=== PATIENT | female | born 1965 | race Hispanic/Latino ===

== ENCOUNTER 2019-05-27 18:22 | Inpatient (IN) | payer MEDICAID, OTHER ==
[~2019-05-27] VITALS: Ht 154.9 cm; Wt 69.5 kg
[2019-05-27 18:42] LABS: APPEARANCE,URINE Clear (CLEAR); BILIRUBIN,URINE Negative (NEGATIVE); COLOR,URINE Yellow (YELLOW); GLUCOSE, URINE (UA) 250 mg/dL (NEGATIVE); KETONES,URINE Negative (NEGATIVE); LEUKOCYTE ESTERASE ,URINE Negative (NEGATIVE); NITRATE,URINE Negative (NEGATIVE); OCCULT BLOOD,URINE Negative (NEGATIVE); PROTEIN,URINE Negative (NEGATIVE); UROBILINOGEN,URINE 0.2 mg/dL (0.2-1.0)
[2019-05-27 18:49] LABS: BASOPHILS % (AUTO) 0.9 % (0.0-5.0); EOSINOPHILS % (AUTO) 1.4 % (0.0-8.0); HEMATOCRIT 42.1 % (36-48); LYMPHOCYTES % (AUTO) 31.1 % (21.0-51.0); MEAN CORPUSCULAR HEMOGLOBIN 28.9 pg (27.0-33.0); MEAN CORPUSCULAR HGB CONC 34.2 g/dL (32.0-36.0); MEAN CORPUSCULAR VOLUME 84.4 fL (79-99); MONOCYTES % (AUTO) 4.2 % (3.0-13.0); NEUTROPHILS % (AUTO) 62.4 % (40.0-77.0); NUCLEATED RED BLOOD CELLS 0.1 % (0.0-0.19); PLATELET COUNT (AUTO) 306 K/uL (130-400); RED BLOOD CELL COUNT(AUTO) 4.99 MIL/uL (4.00-5.50); RED CELL DISTRIBUTION WIDTH 12.7 % (11.0-15.5)
[2019-05-27 18:56] LABS: BACTERIA,URINE Few /HPF (None Seen); MUCUS,URINE None Seen LPF (None Seen); SQUAMOUS EPITHELIAL CELL,UR 0-2 /HPF (0-2)
[2019-05-27 19:05] LABS: CREATININE 0.8 mg/dL (0.5-1.5); POTASSIUM 3.2 mmol/L (3.5-5.1)
[2019-05-27 19:11] LABS: ALBUMIN 3.8 g/dL (3.5-5.0); BILIRUBIN,TOTAL 0.5 mg/dL (0.2-1.0); TOTAL PROTEIN, SERUM 8.1 g/dL (6.0-8.3)
[2019-05-27] MEDS ORDERED: IOHEXOL-350 75 ML VIAL IV ONE (19:14)
[2019-05-27] MEDS ORDERED: ASPIRIN 325 MG TABLET ONE (20:17)
[2019-05-27] MEDS ORDERED: POTASSIUM BICARB/CIT AC 25 MEQ TABLET.EFF ONE (20:17)
[2019-05-27] MEDS ORDERED: HYDRALAZINE HCL 20 MG/ML VIAL IV PRN (22:15)
[2019-05-27] MEDS ORDERED: ACETAMINOPHEN 325 MG TAB PO PRN (22:15)
[2019-05-27] MEDS: SODIUM CHLORIDE 0.9% 1000ML 1,000 ML IV SCH (22:15)
[2019-05-27] MEDS ORDERED: ONDANSETRON HCL 4 MG/2 ML VIAL IV PRN (22:15)
[2019-05-27 22:41] LABS: HEMOGLOBIN A1C 11.5 % (4.0-6.0)
[2019-05-27 22:50] VITALS: BP 130/77
[2019-05-27 22:56] LABS: CHOLESTEROL 224 mg/dL (<200); LDL DIRECT 101 mg/dL (0-99); TRIGLYCERIDES 356 mg/dL (30-200)
[2019-05-27] MEDS ORDERED: SODIUM CHLORIDE 0.9% 1000ML 1,000 ML IV ONE (23:27)
[2019-05-27 23:30] LABS: HDL CHOLESTEROL 41 mg/dL (35-85)
[2019-05-27 23:31] VITALS: BP 132/79
--- NOTE | 2019-05-28 00:12 | NUR ---
Assessment Pt AOX3, stable, good, currently denies any chest pain and denies symptoms of f left sided unilateral paresthesia, left shoulder, and neck pain. No signs of left sided weakness at the moment or facial drop, able to move all extremities. BS in 280, will start hyperglycemia protocol as per MD orders in am. Call light with in reach, pt verbalizes understanding.
[2019-05-28 03:50] LABS: BASOPHILS % (AUTO) 0.5 % (0.0-5.0); EOSINOPHILS % (AUTO) 1.9 % (0.0-8.0); HEMATOCRIT 37.5 % (36-48); LYMPHOCYTES % (AUTO) 38.5 % (21.0-51.0); MEAN CORPUSCULAR HEMOGLOBIN 29.2 pg (27.0-33.0); MEAN CORPUSCULAR HGB CONC 34.2 g/dL (32.0-36.0); MEAN CORPUSCULAR VOLUME 85.5 fL (79-99); MONOCYTES % (AUTO) 5.2 % (3.0-13.0); NEUTROPHILS % (AUTO) 53.9 % (40.0-77.0); PLATELET COUNT (AUTO) 274 K/uL (130-400); RED BLOOD CELL COUNT(AUTO) 4.39 MIL/uL (4.00-5.50); RED CELL DISTRIBUTION WIDTH 12.7 % (11.0-15.5); WHITE BLOOD COUNT (AUTO) 10.9 K/uL (4.8-10.8)
[2019-05-28 03:58] VITALS: BP 129/70
[2019-05-28] MEDS: INSULIN HUMULIN R 100 UNIT/ML 3ML SQ SCH ×4 (06:32→22:01)
[2019-05-28 07:00] VITALS: BP 135/76
--- NOTE | 2019-05-28 07:25 | NUR ---
DR. Carlotta PATEL IN ROOM SPEAKING WITH PT. RE:PLAN OF CARE. QUESTIONS ANSWERED BY .
[2019-05-28] MEDS: SODIUM CHLORIDE 0.9% 1000ML 1,000 ML IV SCH (08:15)
[2019-05-28] MEDS: ATORVASTATIN CALCIUM 40 MG TABLET PO SCH (08:18)
[2019-05-28] MEDS: LISINOPRIL 10 MG TABLET PO SCH (08:18)
[2019-05-28] MEDS: ASPIRIN 81MG TAB.CHEW PO SCH (08:18)
[2019-05-28] MEDS: CLOPIDOGREL BISULFATE 75 MG TAB PO SCH (08:18)
[2019-05-28] MEDS: ENOXAPARIN SODIUM 30 MG/0.3 ML SQ SCH (08:19)
[2019-05-28] MEDS: INSULIN HUMULIN 70/30 100 UNIT/ML 3ML SQ SCH (08:27)
[2019-05-28] MEDS ORDERED: ASPIRIN 81MG TAB.CHEW PO SCH (09:00)
[2019-05-28] MEDS ORDERED: ATORVASTATIN CALCIUM 20 MG TABLET PO SCH (09:00)
[2019-05-28 11:00] VITALS: BP 136/72
[2019-05-28 15:00] VITALS: BP 131/67
[2019-05-28] MEDS ORDERED: INSULIN HUMULIN 70/30 100 UNIT/ML 3ML SQ SCH (19:00)
--- NOTE | 2019-05-28 19:09 | NUR ---
cm note met with patient and states resides at home with adult son Leonardo. pt states is independent with ambulation and adls. no dme. does not see md. provided pt with list of low income clinics in the area. and rx assistance coupons, pt states she plans to followup for [facility] for insurance. . states dc plan is back to home at time of dc. Addendum: 05/28/19 at 2 by VADIM HEARD CM Amended: Links added.
[2019-05-28 20:24] VITALS: BP 148/77
[2019-05-28 23:56] VITALS: BP 137/72
[2019-05-29 04:00] LABS: BASOPHILS % (AUTO) 0.5 % (0.0-5.0); EOSINOPHILS % (AUTO) 1.8 % (0.0-8.0); HEMATOCRIT 38.7 % (36-48); LYMPHOCYTES % (AUTO) 36.2 % (21.0-51.0); MEAN CORPUSCULAR HEMOGLOBIN 28.8 pg (27.0-33.0); MEAN CORPUSCULAR HGB CONC 33.8 g/dL (32.0-36.0); MONOCYTES % (AUTO) 5.2 % (3.0-13.0); NEUTROPHILS % (AUTO) 56.3 % (40.0-77.0); PLATELET COUNT (AUTO) 274 K/uL (130-400); RED BLOOD CELL COUNT(AUTO) 4.55 MIL/uL (4.00-5.50); RED CELL DISTRIBUTION WIDTH 12.5 % (11.0-15.5); WHITE BLOOD COUNT (AUTO) 9.8 K/uL (4.8-10.8)
[2019-05-29 04:14] LABS: CREATININE 0.9 mg/dL (0.5-1.5); POTASSIUM 3.3 mmol/L (3.5-5.1)
[2019-05-29 04:16] VITALS: BP 128/78
[2019-05-29] MEDS ORDERED: POTASSIUM CHLORIDE 20MEQ/100ML 100 ML IV PRN (06:15)
[2019-05-29] MEDS ORDERED: LIDOCAINE HCL-MPF 1% 2ML VIAL IV PRN (06:15)
[2019-05-29] MEDS ORDERED: POTASSIUM CHLORIDE 10% ELIXIR 20 MEQ/15 ML UDCUP PO PRN (06:15)
[2019-05-29] MEDS: POTASSIUM CHLORIDE 20 MEQ ERTAB PO PRN ×2 (06:26→08:12)
[2019-05-29] MEDS: INSULIN HUMULIN R 100 UNIT/ML 3ML SQ SCH ×4 (06:27→21:19)
[2019-05-29] MEDS: INSULIN HUMULIN 70/30 100 UNIT/ML 3ML SQ SCH (06:28)
[2019-05-29] MEDS ORDERED: INSULIN HUMULIN 70/30 100 UNIT/ML 3ML SQ SCH ×2 (07:00→19:00)
[2019-05-29 07:42] VITALS: BP 140/76
[2019-05-29] MEDS: LISINOPRIL 10 MG TABLET PO SCH (08:12)
[2019-05-29] MEDS: CLOPIDOGREL BISULFATE 75 MG TAB PO SCH (08:12)
[2019-05-29] MEDS: ASPIRIN 81MG TAB.CHEW PO SCH (08:12)
[2019-05-29] MEDS: ATORVASTATIN CALCIUM 40 MG TABLET PO SCH (08:12)
[2019-05-29] MEDS: ACETAMINOPHEN 325 MG TAB PO PRN (08:13)
[2019-05-29] MEDS: ENOXAPARIN SODIUM 30 MG/0.3 ML SQ SCH (08:18)
[2019-05-29 11:26] VITALS: BP 123/68
[2019-05-29] MEDS: FLUTICASONE PROPIONATE 50MCG/SPRAY 16 GM BOTTLE EN SCH ×3 (14:00→20:20)
[2019-05-29] MEDS: LORATADINE 10 MG TABLET PO SCH (14:42)
[2019-05-29 16:23] VITALS: BP 136/78
[2019-05-29 19:52] VITALS: BP 143/68
[2019-05-29] MEDS ORDERED: TRAMADOL HCL 50 MG TABLET PO PRN ×2 (20:00)
[2019-05-29 23:54] VITALS: BP 146/77
[2019-05-30 03:39] LABS: BASOPHILS % (AUTO) 0.4 % (0.0-5.0); EOSINOPHILS % (AUTO) 2.3 % (0.0-8.0); HEMATOCRIT 38.7 % (36-48); LYMPHOCYTES % (AUTO) 33.3 % (21.0-51.0); MEAN CORPUSCULAR HEMOGLOBIN 29.7 pg (27.0-33.0); MEAN CORPUSCULAR HGB CONC 34.4 g/dL (32.0-36.0); MEAN CORPUSCULAR VOLUME 86.2 fL (79-99); MONOCYTES % (AUTO) 5.5 % (3.0-13.0); NEUTROPHILS % (AUTO) 58.5 % (40.0-77.0); NUCLEATED RED BLOOD CELLS 0.1 % (0.0-0.19); PLATELET COUNT (AUTO) 278 K/uL (130-400); RED BLOOD CELL COUNT(AUTO) 4.49 MIL/uL (4.00-5.50); RED CELL DISTRIBUTION WIDTH 12.8 % (11.0-15.5); WHITE BLOOD COUNT (AUTO) 9.8 K/uL (4.8-10.8)
[2019-05-30 03:42] LABS: CREATININE 0.8 mg/dL (0.5-1.5); POTASSIUM 3.8 mmol/L (3.5-5.1)
[2019-05-30 04:25] VITALS: BP 143/79
[2019-05-30] MEDS: INSULIN HUMULIN R 100 UNIT/ML 3ML SQ SCH ×4 (06:23→21:44)
[2019-05-30] MEDS ORDERED: INSULIN HUMULIN 70/30 100 UNIT/ML 3ML SQ SCH (07:00)
[2019-05-30 08:03] VITALS: BP 124/69
[2019-05-30] MEDS: CLOPIDOGREL BISULFATE 75 MG TAB PO SCH (09:00)
[2019-05-30] MEDS: ASPIRIN 81MG TAB.CHEW PO SCH (09:01)
[2019-05-30] MEDS: LISINOPRIL 10 MG TABLET PO SCH (09:01)
[2019-05-30] MEDS: ATORVASTATIN CALCIUM 40 MG TABLET PO SCH (09:01)
[2019-05-30] MEDS: LORATADINE 10 MG TABLET PO SCH (09:01)
[2019-05-30] MEDS: FLUTICASONE PROPIONATE 50MCG/SPRAY 16 GM BOTTLE EN SCH ×2 (09:02→20:08)
[2019-05-30] MEDS: ENOXAPARIN SODIUM 30 MG/0.3 ML SQ SCH (09:04)
--- NOTE | 2019-05-30 09:30 | NUR ---
COGNITIVE EVAL COMPLETE. COGNITIVE-LINGUISTIC ABILITIES WITHIN FUNCTIONAL LIMITS. EVALUATION: Pt AAOX3. Pt REQUESTS WANTS AND NEEDS INDEPENDENTLY. Pt INTELLIGIBLE AT 100% ACCURACY TO THE UNFAMILIAR LISTENER. Pt COMMUNICATING AT CONVERSATIONAL LEVEL WITH NO DEFICITS IDENTIFIED AT THIS TIME. Pt COMPLETED COGNITIVE-LINGUISTIC EVALUATION TARGETING: ORIENTATION, ATTENTION/CONCENTRATION, MEMORY (IMMEDIATE, SHORT-TERM AND LONG-TERM), PROBLEM SOLVING, LOGIC/REASONING/INFERENCE, THOUGHT ORGANIZATION, FUNCTIONAL MATH AND TELLING TIME. Pt ABLE TO COMPLETE TASKS WITH CORRECT AND TIMELY ANSWERS TO ALL SECTIONS. G-CODES SPOKEN LANGUAGE EXPRESSION: [id number] Addendum: 05/30/19 at 1149 by FRANK WHITTAKER [facility] Amended: Links added.
[2019-05-30] MEDS: ACETAMINOPHEN 325 MG TAB PO PRN ×2 (09:36→21:32)
--- NOTE | 2019-05-30 09:45 | NUR ---
DYSPHAGIA EVAL COMPLETE. -S/S OF ASPIRATION. RECOMMEND REGULAR, THIN LIQUID DIET; PILLS WHOLE WITH LIQUIDS. Addendum: 05/30/19 at 1155 by FRANK WHITTAKER, [facility] Amended: Links added.
[2019-05-30 12:02] VITALS: BP 140/84
[2019-05-30 16:30] VITALS: BP 152/79
[2019-05-30] MEDS: INSULIN HUMULIN 70/30 100 UNIT/ML 3ML SQ SCH ×2 (17:00→18:13)
[2019-05-30 19:27] VITALS: BP 139/68
[2019-05-30 23:44] VITALS: BP 127/65
[2019-05-31 04:41] LABS: CREATININE 0.8 mg/dL (0.5-1.5); POTASSIUM 3.4 mmol/L (3.5-5.1)
[2019-05-31 04:46] LABS: BASOPHILS % (AUTO) 0.4 % (0.0-5.0); EOSINOPHILS % (AUTO) 2.2 % (0.0-8.0); HEMATOCRIT 38.5 % (36-48); LYMPHOCYTES % (AUTO) 32.4 % (21.0-51.0); MEAN CORPUSCULAR HEMOGLOBIN 29.2 pg (27.0-33.0); MEAN CORPUSCULAR HGB CONC 34.3 g/dL (32.0-36.0); MONOCYTES % (AUTO) 5.7 % (3.0-13.0); NEUTROPHILS % (AUTO) 59.3 % (40.0-77.0); PLATELET COUNT (AUTO) 282 K/uL (130-400); RED BLOOD CELL COUNT(AUTO) 4.53 MIL/uL (4.00-5.50); RED CELL DISTRIBUTION WIDTH 12.8 % (11.0-15.5); WHITE BLOOD COUNT (AUTO) 9.8 K/uL (4.8-10.8)
[2019-05-31 05:24] VITALS: BP 117/68
[2019-05-31] MEDS ORDERED: IBUPROFEN 600 MG TABLET PO PRN (06:00)
[2019-05-31] MEDS: INSULIN HUMULIN R 100 UNIT/ML 3ML SQ SCH ×3 (06:01→17:49)
[2019-05-31] MEDS: POTASSIUM CHLORIDE 20 MEQ ERTAB PO PRN ×2 (07:01→10:08)
[2019-05-31] MEDS: INSULIN HUMULIN 70/30 100 UNIT/ML 3ML SQ SCH ×2 (07:56→17:50)
[2019-05-31 07:59] VITALS: BP 121/60
[2019-05-31] MEDS ORDERED: SERTRALINE HCL 50 MG TABLET PO SCH (09:00)
[2019-05-31] MEDS ORDERED: CLONAZEPAM 1 MG TABLET PO SCH (09:00)
[2019-05-31] MEDS: CLOPIDOGREL BISULFATE 75 MG TAB PO SCH (10:04)
[2019-05-31] MEDS: ATORVASTATIN CALCIUM 40 MG TABLET PO SCH (10:05)
[2019-05-31] MEDS: ASPIRIN 81MG TAB.CHEW PO SCH (10:05)
[2019-05-31] MEDS: LORATADINE 10 MG TABLET PO SCH (10:06)
[2019-05-31] MEDS: LISINOPRIL 10 MG TABLET PO SCH (10:06)
[2019-05-31] MEDS: ENOXAPARIN SODIUM 30 MG/0.3 ML SQ SCH (10:07)
[2019-05-31] MEDS: FLUTICASONE PROPIONATE 50MCG/SPRAY 16 GM BOTTLE EN SCH (10:08)
[2019-05-31 11:59] VITALS: BP 130/72
[2019-05-31 16:21] VITALS: BP 129/74
[2019-05-31] MEDS ORDERED: ATOR40TA69 PO (18:23)
[2019-05-31] MEDS ORDERED: HUM10VIA SQ (18:23)
[2019-05-31] MEDS ORDERED: LISI10TA7 PO (18:23)
[2019-05-31] MEDS ORDERED: SERT50TA PO (18:23)
[2019-05-31] MEDS ORDERED: IBUP-2070 PO (18:23)
[2019-05-31] MEDS ORDERED: CLOP75TA14 PO (18:23)
== END 2019-05-31 19:15 | disposition home or self-care (01) | DRG 69 ==
LOC: EDH 18:22 → EDHIP 18:23 → 2AH 22:28
PROVIDERS: ADMIT Internal Medicine; ATTEND Internal Medicine
DX: G45.9 Transient cerebral ischemic attack, unspecified (principal); I10 Essential (primary) hypertension; E11.65 Type 2 diabetes mellitus with hyperglycemia; E78.5 Hyperlipidemia, unspecified; F31.9 Bipolar disorder, unspecified; F41.9 Anxiety disorder, unspecified; Z91.19 Patient's noncompliance with other medical treatment and regimen
CPT/HCPCS: 36415; 70450; 70496; 70498; 70544; 70547; 70551; 71045; 80048; 80053; 80061; 81001; 82948; 83036; 84484; 85025; 92522; 92610; 93005; 93306; 93880; G0378; J1650; J1815; J7030; Q9967

== ENCOUNTER → 2023-12-31 | Outpatient (CLI) | payer OTHER ==
[~2023-12-31] MED LIST: ATOR40TA69 PO; CLOP-31 PO; HUM10VIA SQ; IBUP-2070 PO; LISI10TA24 PO; SERT50TA PO
== END | disposition home or self-care (01) ==
LOC: OIH 13:56
PROVIDERS: ATTEND Internal Medicine Cardiovascular Disease
DX: Z13.6 Encounter for screening for cardiovascular disorders (principal)
CPT/HCPCS: 75571